=== PATIENT | male | born 1955 | race Hispanic/Latino ===

== ENCOUNTER 2017-10-02 18:01 | Emergency (ER) | payer MEDICAID ==
[2017-10-02 18:19] VITALS: BP 140/63
[2017-10-02 20:34] LABS: Bilirubin,Urine NEG (Negative); Blood,Urine NEG (Negative); Color,Urine Yellow (Yellow); Protein,Urine <15 mg/dL mg/dL (Negative); RBC,Urine < 1.0 /HPF (0.0-6.0); Urobilinogen,Urine < 2.0 mg/dL (<2.0); WBC,Urine < 1.0 /HPF (0.0-6.0)
[2017-10-02] MEDS ORDERED: NORCO 5/325 PO ONE (23:37)
--- NOTE | 2017-10-03 00:50 | Cat Scan Report ---
FINAL REPORT EXAM: CT ABDOMEN PELVIS WO CON HISTORY: flank+lower back pain please include l-spine COMPARISON: None available. TECHNIQUE: Contiguous axial images were obtained. Additional sagittal and coronal reformatted images were obtained. FINDINGS: Mild linear atelectasis or scarring at the visualized lung bases. 4 millimeter nodule within the lingula (series 4, image 2). There is ill-defined hypodense lesion centrally within the superior right hepatic lobe measuring approximately 2.5 x 2.5 centimeters in axial dimension. There is a 2nd lesion at the medial margin right hepatic lobe measuring 2.1 x 1.9 centimeters. Spleen is unremarkable. Multiple calcifications the pancreas with pancreatic ductal dilatation compatible sequelae of chronic pancreatitis. No peripancreatic stranding or fluid to suggest active pancreatitis by CT. Mild nodular thickening of adrenal glands. Tiny hiatal hernia. No calcified gallstones. There multiple vascular calcifications at the medial margins of the kidneys bilaterally. No obstructive renal calculi. There is a focal defect of the inferior margin right kidney which may relate to sequelae of prior surgery, inflammation, or trauma. Small benign bilateral renal cysts. No hydronephrosis. Aorta and IVC are normal in caliber. Moderate severe calcified plaque along the aorta. Mild wall thickening at the anterior lateral margins of the urinary bladder. Wall thickness measures up to 6 millimeters. No distal ureteral urinary bladder calculi. Prostate gland is grossly unremarkable. No free fluid or lymphadenopathy in the pelvic cavity. Moderate diverticulosis of left colon. No diverticulitis. Moderate large amount of stool within the colon. No focal inflammatory changes the bowel. The appendix is normal in caliber. No bowel obstruction. No free air pneumatosis. Bilateral pars defects at the L5 level with grade 1 anterolisthesis of L5 on S1 by 8 millimeters. Severe bilateral foraminal narrowing at that level. Broad-based disc bulges at the L3-L4 and L4-L5 levels cause mild to moderate canal stenosis and foraminal narrowing. There is an oblique fracture through the anterior superior margin of the L1 vertebral body. This is of uncertain age. Mild depression of the superior endplate by 3 millimeters. No bony retropulsion. IMPRESSION: Oblique nondisplaced fracture of the anterior superior margin of the L1 vertebral body mild depression of the superior endplate. This fractures of uncertain age may be acute or chronic. Remaining lumbar vertebral body heights are preserved. Grade 1 anterolisthesis of L5 on S1 due to chronic bilateral pars defects with severe bilateral foramina ring at that level. No obstructive renal calculi or hydronephrosis. There is several calcifications the renal sinus fat bilaterally which could be vascular origin. There are least 2 indeterminate hypodense lesions within the liver. [address] suggested for further evaluation. Moderate large amount of stool within the colon. No focal inflammatory changes the bowel or the appendix. Diverticulosis of left colon. No diverticulitis. Changes of chronic pancreatitis. No peripancreatic stranding or fluid to suggest active inflammation the pancreas by CT. Correlation with amylase lipase suggested. Mild wall thickening of the anterior lateral margins of the urinary bladder. Correlation with urinalysis suggested to ensure no active inflammation.
[2017-10-03] MEDS ORDERED: MOTRIN PO ONE (01:01)
[2017-10-03] MEDS ORDERED: NORCO 5/325 PO ONE (01:02)
--- NOTE | 2017-10-03 01:17 | Emergency Department Report ---
ED Back Pain/Injury HPI - General Chief Complaint: Back Pain/Injury Stated Complaint: BACK PAIN Time Seen by Provider: 10/03/17 00:06 Source: patient Limitations: No Limitations - History of Present Illness Initial Comments: 61-year-old male past medical history arthritis, chronic pancreatitis, back pain , anxiety, rib pain, C. difficile, arthritis, diabetes presents with complaint of body aches and lower back pain for approximately 3-4 days. Patient denies fevers chills nausea or vomiting. States he feels slightly constipated but is still passing gas. Primarily complaining of pain in his lower back region. Denies fevers chills chest pain palpitations dysuria or hematuria or increased urinary frequency. Patient is ambulatory awake alert and oriented 3. Denies any saddle paresthesias or bladder or bowel incontinence. Denies fevers or chills. Denies any recent falls or recent trauma. Denies doing any particular action where he might have hurt his lower back. States this occurred spontaneously. MD Complaint: back pain Onset/Timin -: days(s) Place: home Severity: moderate Severity scale (0 -10): 7 Quality: sharp, dull, aching Consistency: intermittent Improves With: immobilization, supine Worsens With: immobilization Context: while lifting, turning/twisting, bending - Related Data Previous Rx's Medication Instructions Recorded Last Taken Type Docusate Sodium [Colace] 100 mg PO TID PRN #30 capsule 10/03/17 Unknown Rx HYDROcodone/APAP 5-325 [Western 1 each PO Q6HR PRN #18 tablet 10/03/17 Unknown Rx 5/325] Sennosides [Senna] 8.6 mg PO QHS PRN #10 tablet 10/03/17 Unknown Rx Allergies Allergy/AdvReac Type Severity Reaction Status Date / Time No Known Allergies Allergy Unverified 10/02/17 18:14 ED Review of Systems ROS: Stated complaint: BACK PAIN Other details as noted in HPI Constitutional: denies: chills, fever Eyes: denies: eye pain, eye discharge, vision change ENT: as per HPI (chronic cervical lymphadenopathy). denies: ear pain, throat pain Respiratory: denies: cough, shortness of breath, wheezing Cardiovascular: denies: chest pain, palpitations Endocrine: no symptoms reported Gastrointestinal: constipation (approximately 1-2 weeks of intermittent constipation. Patient still passing gas). denies: abdominal pain, nausea, diarrhea Genitourinary: denies: urgency, dysuria Musculoskeletal: back pain (3-4 days of persistent lower back pain). denies: joint swelling, arthralgia Skin: denies: rash, lesions Neurological: denies: headache, weakness, paresthesias Psychiatric: denies: anxiety, depression Hematological/Lymphatic: denies: easy bleeding, easy bruising ED Past Medical Hx - Past Medical History Previous Medical History?: Yes Hx Diabetes: Yes (borderline) Hx Arthritis: Yes Additional medical history: Back pain, Anxiety, Right rib pain, C- diff infection, [place], Pancreatitis - Surgical History Past Surgical History?: No - Social History Smoking Status: Current Every Day Smoker Substance Use Type: Prescribed - Medications Home Medications: Home Medications Medication Instructions Recorded Confirmed Last Taken Type Docusate Sodium [Colace] 100 mg PO TID PRN #30 capsule 10/03/17 Unknown Rx HYDROcodone/APAP 5-325 [Western 1 each PO Q6HR PRN #18 tablet 10/03/17 Unknown Rx 5/325] Sennosides [Senna] 8.6 mg PO QHS PRN #10 tablet 10/03/17 Unknown Rx ED Physical Exam - General Limitations: No Limitations General appearance: alert, in no apparent distress - Head Head exam: Present: atraumatic, normocephalic - Eye Eye exam: Present: normal appearance - ENT ENT exam: Present: mucous membranes moist - Neck Neck exam: Present: normal inspection, lymphadenopathy (patient states he has had lymphadenopathy for several months) - Respiratory Respiratory exam: Present: normal lung sounds bilaterally. Absent: respiratory distress - Cardiovascular Cardiovascular Exam: Present: regular rate, normal rhythm. Absent: systolic murmur, diastolic murmur, rubs, gallop - GI/Abdominal GI/Abdominal exam: Present: soft, normal bowel sounds - Rectal Rectal exam: Present: deferred - Extremities Exam Extremities exam: Present: normal inspection - Back Exam Back exam: Present: normal inspection, full ROM, paraspinal tenderness ( paraspinal L spine tenderness. No midline cervical thoracic or lumbar spinal tenderness. No erythema or rash and back will) - Neurological Exam Neurological exam: Present: alert, oriented X3, CN II-XII intact, normal gait - Expanded Neurological Exam Expanded Patient oriented to: Present: person, place, time Cranial nerves: EOM's Intact: Normal, Facial Sensation: Normal Sensory exam: Upper Extremity Light Touch: Normal, Lower Extremity Light Touch: Normal Motor strength exam: RUE: 5, LUE: 5, RLE: 5, LLE: 5 DTR: knee (R): 3+, knee (L): 3+ Best Eye Response ([place]): (4) open spontaneously Best Motor Response ([place]): (6) obeys commands Best Verbal Response ([place]osa): (5) oriented [place] Total: 15 - Psychiatric Psychiatric exam: Present: normal affect, normal mood - Skin Skin exam: Present: warm, dry, intact, normal color. Absent: rash ED Course Vital Signs 10/02/17 18:14 Temperature 98.5 F Pulse Rate 63 Respiratory 20 Rate Blood Pressure 140/63 O2 Sat by Pulse 95 Oximetry ED Medical Decision Making - Lab Data Result diagrams: 10/03/17 00:43 10/03/17 00:43 - Medical Decision Making A/P: Vertebral fracture, chronic lymphadenopathy, hyponatremia 1-I discussed case with Dr. Betancourt and reviewed labs as well as CT result. As per my discussion with attending I will treat patient for pain and refer him to a spine surgeon/neurosurgery Dr. Marshall. Patient has no clinical signs of cauda equina. Strength 5 out of 5 bilateral lower extremities. No saddle paresthesias no bladder or bowel incontinence. I advised him to return to the ED if he notices any of the symptoms. Patient is ambulating without assistance and has no signs of paralysis. In bear weight against gravity. 2-sodium level 129 I discussed this with attending. Repleted with normal saline IV. Labs otherwise unremarkable. Creatinine kinase is not elevated 3- I informed patient of result of CT 4- senna and Colace for constipation. Patient has no abdominal pain still passing gas without difficulty. No clinical suspicion for obstruction 5- follow-up with him on for chronic cervical lymphadenopathy. Patient has no clinical signs of infection at this time Critical care attestation.: If time is entered above; I have spent that time in minutes in the direct care of this critically ill patient, excluding procedure time. ED Disposition Clinical Impression: Body aches, Cervical lymphadenopathy, Hyponatremia Vertebral fracture Qualifiers: Encounter type: initial encounter Fracture of vertebra location: lumbar Lumbar vertebra fracture level: L1 Fracture type: closed Fracture morphology: other fracture Qualified Code(s): S32.018A - Other fracture of first lumbar vertebra, initial encounter for closed fracture Disposition: TO HOME OR SELFCARE Is pt being admited?: No Does the pt Need Aspirin: No Condition: Stable Instructions: Vertebral Compression Fracture (ED), Hyponatremia (ED), Lymphadenopathy (ED), Back Pain (ED) Prescriptions: Sennosides [Senna] 8.6 mg PO QHS PRN #10 tablet PRN Reason: Constipation Docusate Sodium [Colace] 100 mg PO TID PRN #30 capsule PRN Reason: Constipation HYDROcodone/APAP 5-325 [Western 5/325] 1 each PO Q6HR PRN #18 tablet PRN Reason: Pain Referrals: MOHAN RAYO [Other] - 3-5 Days AUTUMN GARCIA MD [Staff Physician] - 3-5 Days MRAITZA MARSHALL MD [Staff Physician] - 3-5 Days LINDA DELGADILLO DO [Staff Physician] - 3-5 Days Time of Disposition: 04:38
[2017-10-03 01:56] LABS: Basophils % (Auto) 0.4 % (0.0-1.8); Eosinophils # (Auto) 0.1 K/mm3 (0.0-0.4); Eosinophils % (Auto) 1.4 % (0.0-4.3); Hematocrit 35.6 % (35.5-45.6); Hemoglobin 12.4 gm/dl (11.8-15.2); Lymphocytes # (Auto) 1.8 K/mm3 (1.2-5.4); Lymphocytes % (Auto) 25.6 % (13.4-35.0); Mean Corpuscular HGB Conc 35 % (32-34); Mean Corpuscular Hemoglobin 32 pg (28-32); Mean Corpuscular Volume 92 fl (84-94); Monocytes # (Auto) 0.7 K/mm3 (0.0-0.8); Monocytes % (Auto) 9.6 % (0.0-7.3); Platelet Count 208 K/mm3 (140-440); Red Blood Count 3.88 M/mm3 (3.65-5.03); Red Cell Distribution Width 13.5 % (13.2-15.2)
[2017-10-03 02:11] LABS: Alanine Aminotransferase 6 units/L (7-56); Albumin 3.9 g/dL (3.9-5); BUN/Creatinine Ratio 10; Blood Urea Nitrogen 5 mg/dL (9-20); Hemolysis Index 2; Lipase 48 units/L (13-60)
[2017-10-03] MEDS ORDERED: NACL 0.9% 1000 ML 1,000 ML IV ONE (02:21)
[2017-10-03 02:29] LABS: Bilirubin,Direct < 0.2 mg/dL (0-0.2)
[2017-10-03] MEDS ORDERED: DUONEB *Not for PRN Use IH ONE (06:49)
[2017-10-03] MEDS ORDERED: DELTASONE PO ONE (06:49)
[2017-10-03] MEDS ORDERED: XANAX PO ONE (07:11)
[2017-10-03 07:53] LABS: BUN/Creatinine Ratio 12; Blood Urea Nitrogen 6 mg/dL (9-20); Calcium 8.6 mg/dL (8.4-10.2); Hemolysis Index 3
== END 2017-10-03 07:22 | disposition home or self-care (01) ==
LOC: ED 18:01
DX: S32.018A Other fracture of first lumbar vertebra, initial encounter for closed fracture (principal); R59.1 Generalized enlarged lymph nodes; E87.1 Hypo-osmolality and hyponatremia; E11.9 Type 2 diabetes mellitus without complications; M19.90 Unspecified osteoarthritis, unspecified site; F17.200 Nicotine dependence, unspecified, uncomplicated
CPT/HCPCS: 36415; 74176; 80048; 80074; 81001; 82150; 82550; 83690; 85025; 96360; 99284; J7030

== ENCOUNTER 2017-11-18 15:23 | Emergency (ER) | payer MEDICAID ==
[2017-11-18] MEDS ORDERED: ASPIRIN PO ONE (16:08)
[2017-11-18 16:34] LABS: Basophils % (Auto) 0.3 % (0.0-1.8); Eosinophils % (Auto) 0.3 % (0.0-4.3); Hematocrit 27.9 % (35.5-45.6); Lymphocytes # (Auto) 1.8 K/mm3 (1.2-5.4); Lymphocytes % (Auto) 12.3 % (13.4-35.0); Mean Corpuscular HGB Conc 36 % (32-34); Mean Corpuscular Hemoglobin 33 pg (28-32); Mean Corpuscular Volume 92 fl (84-94); Monocytes # (Auto) 0.7 K/mm3 (0.0-0.8); Monocytes % (Auto) 4.7 % (0.0-7.3); Platelet Count 368 K/mm3 (140-440); Red Blood Count 3.04 M/mm3 (3.65-5.03); Red Cell Distribution Width 14.5 % (13.2-15.2)
[2017-11-18 16:42] LABS: BUN/Creatinine Ratio 11; Blood Urea Nitrogen 8 mg/dL (9-20); Calcium 9.4 mg/dL (8.4-10.2); Hemolysis Index 1
[2017-11-19] MEDS ORDERED: NACL 0.9% 1000 ML 1,000 ML IV ONE ×2 (02:30→02:33)
[2017-11-19] MEDS ORDERED: XANAX PO ONE (02:30)
[2017-11-19 02:54] LABS: Bilirubin,Urine NEG (Negative); Blood,Urine NEG (Negative); Color,Urine Yellow (Yellow); Hyaline Casts,Urine 1 /LPF; Mucus,Urine FEW /HPF; Protein,Urine <15 mg/dL mg/dL (Negative); RBC,Urine < 1.0 /HPF (0.0-6.0); Urobilinogen,Urine < 2.0 mg/dL (<2.0)
[2017-11-19 03:05] LABS: Amphetamine Screen,Urine PRESUMPTIVE NEGATIVE; Benzodiazepines Screen,Urine PRESUMPTIVE NEGATIVE; Cannabinoid Screen,Urine PRESUMPTIVE NEGATIVE; Cocaine Screen,Urine PRESUMPTIVE NEGATIVE; Methadone Screen,Urine PRESUMPTIVE NEGATIVE; Opiate Screen,Urine PRESUMPTIVE NEGATIVE
--- NOTE | 2017-11-19 04:16 | XRay Report ---
FINAL REPORT PROCEDURE: XR CHEST ROUTINE 2V TECHNIQUE: PA and lateral chest radiographs were obtained. CPT 50134 HISTORY: anxiety, sob COMPARISON: No prior studies are available for comparison. FINDINGS: Heart: Normal. Mediastinum/Vessels: Normal. Lungs/Pleural space: Lungs are expanded and clear. There are no infiltrates, effusions or pneumothoraces.. Bony thorax: There are old bilateral rib fractures. There is no acute bony abnormality.. Other: IMPRESSION: The heart size is normal.. Lungs are expanded and clear. There are no infiltrates, effusions or pneumothoraces.. There are old bilateral rib fractures. There is no acute bony abnormality..
[2017-11-19] MEDS ORDERED: ZOFRAN IV ONE (05:05)
--- NOTE | 2017-11-19 05:10 | Emergency Department Report ---
- General Chief complaint: Chest Pain Stated complaint: DIZZY AND NAUSEA Time Seen by Provider: 11/19/17 01:30 Source: patient, old records reviewed Mode of arrival: Ambulatory Limitations: No Limitations - History of Present Illness Initial comments: 62-year-old male with a "borderline diabetes", arthritis, and anxiety presents to the hospital with complaint of lightheadedness. Patient states he feels dizzy like he is going to pass out. He has body aches rated 5/10 in intensity, nausea, and feeling extremely anxious 1 week. Mild shortness of breath also reported. No chest pain, vomiting, fever, or diarrhea P Patient has been on benzos in the past but states most doctors are not willing to prescribe this medication for him right now. He is not currently under care of a psychiatrist but has been in the past. Patient is on hydroxyzine without improvement in anxiety symptoms. Severity scale (0 -10): 10 - Related Data Previous Rx's Medication Instructions Recorded Last Taken Type ALPRAZolam [Xanax TAB] 0.5 mg PO TID PRN #4 tab 10/03/17 Unknown Rx Docusate Sodium [Colace] 100 mg PO TID PRN #30 capsule 10/03/17 Unknown Rx HYDROcodone/APAP 5-325 [[place] 1 each PO Q6HR PRN #18 tablet 10/03/17 Unknown Rx 5/325] Sennosides [Senna] 8.6 mg PO QHS PRN #10 tablet 10/03/17 Unknown Rx Meclizine [Antivert] 25 mg PO TID PRN #30 tablet 11/19/17 Unknown Rx Allergies Allergy/AdvReac Type Severity Reaction Status Date / Time No Known Allergies Allergy Verified 11/19/17 01:39 ED Review of Systems ROS: Stated complaint: DIZZY AND NAUSEA Other details as noted in HPI Comment: All other systems reviewed and negative ED Past Medical Hx - Past Medical History Previous Medical History?: Yes Hx Diabetes: Yes (borderline) Hx Arthritis: Yes Additional medical history: Back pain, Anxiety, Right rib pain, C- diff infection, Echoli, Pancreatitis - Surgical History Past Surgical History?: No - Social History Smoking Status: Current Every Day Smoker Substance Use Type: Prescribed - Medications Home Medications: Home Medications Medication Instructions Recorded Confirmed Last Taken Type ALPRAZolam [Xanax TAB] 0.5 mg PO TID PRN #4 tab 10/03/17 Unknown Rx Docusate Sodium [Colace] 100 mg PO TID PRN #30 capsule 10/03/17 Unknown Rx HYDROcodone/APAP 5-325 [[place] 1 each PO Q6HR PRN #18 tablet 10/03/17 Unknown Rx 5/325] Sennosides [Senna] 8.6 mg PO QHS PRN #10 tablet 10/03/17 Unknown Rx Meclizine [Antivert] 25 mg PO TID PRN #30 tablet 11/19/17 Unknown Rx ED Physical Exam - General Limitations: No Limitations - Other Other exam information: General: No limitations, patient is alert in no acute distress Head exam: Atraumatic, normocephalic Eyes exam: Normal appearance, pupils equal reactive to light, extraocular movements intact ENT: Moist mucous membrane, normal oropharynx Neck exam: Normal inspection, full range of motion, no meningismus nontender Respiratory exam: Clear to auscultation bilateral, no wheezes, rales, crackles Cardiovascular: Normal rate and rhythm, normal heart sounds Abdomen: Soft, nondistended, and nontender, with normal bowel sounds, no rebound, or guarding Extremity: Full range of motion normal inspection no deformity Back: Normal Inspection, full range of motion, no tenderness Neurologic: Alert, oriented x3, cranial nerves intact, no motor or sensory deficit Psychiatric: normal affect, normal mood Skin: Warm, dry, intact - Assessment Assessment Interval: Baseline - Level of Consciousness 1a. Level of Consciousness: alert - LOC Questions 1b. LOC Questions: answers correctly - LOC Command 1c. LOC Commands: performs tasks correctly - Best Gaze 2. Best Gaze: normal - Visual 3. Visual: no visual loss - Facial Palsy 4. Facial Palsy: normal symmetrical movement - Motor Arm 5b. Motor Arm Right: no drift 5a. Motor Arm Left: no drift - Motor Leg 6a. Motor Leg Left: no drift 6b. Motor Leg Right: no drift - Limb Ataxia 7. Limb Ataxia: absent - Sensory 8. Sensory: normal - Best Language 9. Best Language: no aphasia - Dysarthria 10. Dysarthria: normal - Extinction and Inattention 11. Extinction/Inattention: no abnormality - Scoring Total Score: 0 Stroke Severity: No Stroke Symptoms ED Course Vital Signs 11/18/17 11/18/17 11/19/17 15:59 21:22 01:31 Temperature 98.1 F 98.2 F 98.3 F Pulse Rate 109 H 107 H 96 H Pulse Rate [ Lying] Respiratory 16 18 16 Rate Blood Pressure 134/73 122/79 Blood Pressure [Lying] Blood Pressure 134/73 131/80 [Right] O2 Sat by Pulse 98 99 95 Oximetry 11/19/17 11/19/17 11/19/17 03:00 03:30 03:45 Temperature Pulse Rate 93 H 91 H Pulse Rate [ 94 H Lying] Respiratory 11 L 14 Rate Blood Pressure 134/81 144/82 Blood Pressure 109/73 [Lying] Blood Pressure [Right] O2 Sat by Pulse 98 98 Oximetry 11/19/17 11/19/17 11/19/17 03:49 04:00 04:15 Temperature Pulse Rate 92 H 91 H Pulse Rate [ Lying] Respiratory 16 15 18 Rate Blood Pressure 127/83 136/81 Blood Pressure [Lying] Blood Pressure [Right] O2 Sat by Pulse 98 97 98 Oximetry 11/19/17 11/19/17 11/19/17 04:30 04:45 05:00 Temperature Pulse Rate 93 H 92 H 91 H Pulse Rate [ Lying] Respiratory 16 17 13 Rate Blood Pressure 136/85 143/86 144/89 Blood Pressure [Lying] Blood Pressure [Right] O2 Sat by Pulse 96 96 Oximetry - Reevaluation(s) Reevaluation #1: 11/19/17 06:17 Patient received IV fluids with improvement in heart rate. Patient requests medication for a vertical symptom although he described it more as a lightheadedness. He went given meclizine in the ED and a prescription. He was instructed not to take Vistaril and meclizine together since they are similar classes ED Medical Decision Making - Lab Data Result diagrams: 11/18/17 16:17 11/18/17 16:17 Lab Results 11/18/17 11/18/17 11/18/17 Range/Units 15:52 16:17 16:17 WBC 14.5 H (4.5-11.0) K/mm3 RBC 3.04 L (3.65-5.03) M/mm3 Hgb 10.0 L (11.8-15.2) gm/dl Hct 27.9 L (35.5-45.6) % MCV 92 (84-94) fl MCH 33 H (28-32) pg MCHC 36 H (32-34) % RDW 14.5 (13.2-15.2) % Plt Count 368 (140-440) K/mm3 Lymph % (Auto) 12.3 L (13.4-35.0) % Rains % (Auto) 4.7 (0.0-7.3) % Eos % (Auto) 0.3 (0.0-4.3) % Baso % (Auto) 0.3 (0.0-1.8) % Lymph # 1.8 (1.2-5.4) K/mm3 Rains # 0.7 (0.0-0.8) K/mm3 Eos # 0.0 (0.0-0.4) K/mm3 Baso # 0.0 (0.0-0.1) K/mm3 Seg Neutrophils % 82.4 H (40.0-70.0) % Seg Neutrophils # 12.0 H (1.8-7.7) K/mm3 POC ABG pH (7.35-7.45) POC ABG pCO2 (35-45) POC ABG pO2 (80-105) POC ABG HCO3 POC ABG Total CO2 POC ABG O2 Sat POC ABG Base Excess FiO2 % Sodium 131 L (137-145) mmol/L Potassium 4.2 (3.6-5.0) mmol/L Chloride 88.6 L (98-107) mmol/L Carbon Dioxide 17 L (22-30) mmol/L Anion Gap 30 mmol/L BUN 8 L (9-20) mg/dL Creatinine 0.7 L (0.8-1.5) mg/dL Estimated GFR > 60 ml/min BUN/Creatinine Ratio 11 % Glucose 68 L (75-100) mg/dL POC Glucose 69 L (70-105) Calcium 9.4 (8.4-10.2) mg/dL Troponin T < 0.010 (0.00-0.029) ng/mL Urine Color (Yellow) Urine Turbidity (Clear) Urine pH (5.0-7.0) Ur Specific [place] (1.003-1.030) Urine Protein (Negative) mg/dL Urine Glucose (UA) (Negative) mg/dL Urine Ketones (Negative) mg/dL Urine Blood (Negative) Urine Nitrite (Negative) Urine Bilirubin (Negative) Urine Urobilinogen (<2.0) mg/dL Ur Leukocyte Esterase (Negative) Urine WBC (Auto) (0.0-6.0) /HPF Urine RBC (Auto) (0.0-6.0) /HPF Hyaline Casts /LPF Urine Mucus /HPF Urine Opiates Screen Urine Methadone Screen Ur Barbiturates Screen Ur Phencyclidine Scrn Ur Amphetamines Screen U Benzodiazepines Scrn Urine Cocaine Screen U Marijuana (THC) Screen Drugs of Abuse Note 11/18/17 11/18/17 11/19/17 Range/Units 18:38 22:05 02:44 WBC (4.5-11.0) K/mm3 RBC (3.65-5.03) M/mm3 Hgb (11.8-15.2) gm/dl Hct (35.5-45.6) % MCV (84-94) fl MCH (28-32) pg MCHC (32-34) % RDW (13.2-15.2) % Plt Count (140-440) K/mm3 Lymph % (Auto) (13.4-35.0) % Rains % (Auto) (0.0-7.3) % Eos % (Auto) (0.0-4.3) % Baso % (Auto) (0.0-1.8) % Lymph # (1.2-5.4) K/mm3 Rains # (0.0-0.8) K/mm3 Eos # (0.0-0.4) K/mm3 Baso # (0.0-0.1) K/mm3 Seg Neutrophils % (40.0-70.0) % Seg Neutrophils # (1.8-7.7) K/mm3 POC ABG pH (7.35-7.45) POC ABG pCO2 (35-45) POC ABG pO2 (80-105) POC ABG HCO3 POC ABG Total CO2 POC ABG O2 Sat POC ABG Base Excess FiO2 % Sodium (137-145) mmol/L Potassium (3.6-5.0) mmol/L Chloride (98-107) mmol/L Carbon Dioxide (22-30) mmol/L Anion Gap mmol/L BUN (9-20) mg/dL Creatinine (0.8-1.5) mg/dL Estimated GFR ml/min BUN/Creatinine Ratio % Glucose (75-100) mg/dL POC Glucose 88 (70-105) Calcium (8.4-10.2) mg/dL Troponin T < 0.010 < 0.010 (0.00-0.029) ng/mL Urine Color (Yellow) Urine Turbidity (Clear) Urine pH (5.0-7.0) Ur Specific [place] (1.003-1.030) Urine Protein (Negative) mg/dL Urine Glucose (UA) (Negative) mg/dL Urine Ketones (Negative) mg/dL Urine Blood (Negative) Urine Nitrite (Negative) Urine Bilirubin (Negative) Urine Urobilinogen (<2.0) mg/dL Ur Leukocyte Esterase (Negative) Urine WBC (Auto) (0.0-6.0) /HPF Urine RBC (Auto) (0.0-6.0) /HPF Hyaline Casts /LPF Urine Mucus /HPF Urine Opiates Screen Urine Methadone Screen Ur Barbiturates Screen Ur Phencyclidine Scrn Ur Amphetamines Screen U Benzodiazepines Scrn Urine Cocaine Screen U Marijuana (THC) Screen Drugs of Abuse Note 11/19/17 11/19/17 11/19/17 Range/Units 03:18 Unknown Unknown WBC (4.5-11.0) K/mm3 RBC (3.65-5.03) M/mm3 Hgb (11.8-15.2) gm/dl Hct (35.5-45.6) % MCV (84-94) fl MCH (28-32) pg MCHC (32-34) % RDW (13.2-15.2) % Plt Count (140-440) K/mm3 Lymph % (Auto) (13.4-35.0) % Rains % (Auto) (0.0-7.3) % Eos % (Auto) (0.0-4.3) % Baso % (Auto) (0.0-1.8) % Lymph # (1.2-5.4) K/mm3 Rains # (0.0-0.8) K/mm3 Eos # (0.0-0.4) K/mm3 Baso # (0.0-0.1) K/mm3 Seg Neutrophils % (40.0-70.0) % Seg Neutrophils # (1.8-7.7) K/mm3 POC ABG pH 7.463 H (7.35-7.45) POC ABG pCO2 31.4 L (35-45) POC ABG pO2 88 (80-105) POC ABG HCO3 22.5 POC ABG Total CO2 23 POC ABG O2 Sat 97 POC ABG Base Excess -1 FiO2 21 % Sodium (137-145) mmol/L Potassium (3.6-5.0) mmol/L Chloride (98-107) mmol/L Carbon Dioxide (22-30) mmol/L Anion Gap mmol/L BUN (9-20) mg/dL Creatinine (0.8-1.5) mg/dL Estimated GFR ml/min BUN/Creatinine Ratio % Glucose (75-100) mg/dL POC Glucose (70-105) Calcium (8.4-10.2) mg/dL Troponin T (0.00-0.029) ng/mL Urine Color Yellow (Yellow) Urine Turbidity Clear (Clear) Urine pH 5.0 (5.0-7.0) Ur Specific [place] 1.013 (1.003-1.030) Urine Protein <15 mg/dl (Negative) mg/dL Urine Glucose (UA) Neg (Negative) mg/dL Urine Ketones Tr (Negative) mg/dL Urine Blood Neg (Negative) Urine Nitrite Neg (Negative) Urine Bilirubin Neg (Negative) Urine Urobilinogen < 2.0 (<2.0) mg/dL Ur Leukocyte Esterase Neg (Negative) Urine WBC (Auto) 3.0 (0.0-6.0) /HPF Urine RBC (Auto) < 1.0 (0.0-6.0) /HPF Hyaline Casts 1 /LPF Urine Mucus Few /HPF Urine Opiates Screen Presumptive negative Urine Methadone Screen Presumptive negative Ur Barbiturates Screen Presumptive negative Ur Phencyclidine Scrn Presumptive negative Ur Amphetamines Screen Presumptive negative U Benzodiazepines Scrn Presumptive negative Urine Cocaine Screen Presumptive negative U Marijuana (THC) Screen Presumptive negative Drugs of Abuse Note Disclamer - EKG Data -: EKG Interpreted by Me (ant infract old) EKG shows normal: sinus rhythm, axis (qrs 45), QRS complexes (qrsd 80), ST-T waves (no stemi/t inv) Rate: normal (96) - EKG Data When compared to previous EKG there are: previous EKG unavailable 11/19/17 repeat ekg in ed does not show any acute changes - Radiology Data Radiology results: report reviewed PROCEDURE: XR CHEST ROUTINE 2V TECHNIQUE: PA and lateral chest radiographs were obtained. CPT 66231 HISTORY: anxiety, sob COMPARISON: No prior studies are available for comparison. FINDINGS: Heart: Normal. Mediastinum/Vessels: Normal. Lungs/Pleural space: Lungs are expanded and clear. There are no infiltrates, effusions or pneumothoraces.. Bony thorax: There are old bilateral rib fractures. There is no acute bony abnormality.. Other: IMPRESSION: The heart size is normal.. Lungs are expanded and clear. There are no infiltrates, effusions or pneumothoraces.. There are old bilateral rib fractures. There is no acute bony abnormality.. - Medical Decision Making Patient had an increase in his heart rate with standing but blood pressure did not drop suggest significant dehydration orthostatics. Patient noted to be hyponatremic and has been hyponatremic in the past. Normal saline provided. Patient has chronic anxiety and has been on benzodiazepines in the past and currently taking hydroxyzine without improvement. He needs to follow-up with a psychiatrist for definitive management of his chronic anxiety symptoms. ABG was performed due to low bicarbonate on BMP. ABG reveals very mild respiratory alkalosis could be due to hyperventilation from anxiety symptoms. - Differential Diagnosis electrolyte abnormality, dehydration, infection, arrhythmia, anxiety Critical Care Time: No Critical care attestation.: If time is entered above; I have spent that time in minutes in the direct care of this critically ill patient, excluding procedure time. ED Disposition Clinical Impression: Anxiety, Hyponatremia, Light-headed feeling Disposition: DC-01 TO HOME OR SELFCARE Is pt being admited?: No Does the pt Need Aspirin: No Condition: Stable Instructions: Hyponatremia (ED), Lightheadedness (ED), Anxiety (ED) Additional Instructions: It is very important that you see a psychiatrist and a primary care doctor for further treatment. Do not take the meclizine and hydroxyzine together because they are a similar class of medication Prescriptions: Meclizine [Antivert] 25 mg PO TID PRN #30 tablet PRN Reason: Vertigo Referrals: PRIMARY CARE, [Primary Care Provider] - 3-5 Days [facility] [Provider Group] - 3-5 Days ([facility] clinic[facility] - [facility]-5 Days (Mental health clinic) JOLANTA ADAN MD [Staff Physician] - 3-5 Days (Primary care doctor) Time of Disposition: 06:19 (d/c after ivf complete)
[2017-11-19] MEDS ORDERED: ANTIVERT PO ONE (06:18)
[2017-11-19 09:56] VITALS: BP 117/80
== END 2017-11-19 10:57 | disposition home or self-care (01) ==
LOC: ED 15:23
DX: F41.9 Anxiety disorder, unspecified (principal); E87.1 Hypo-osmolality and hyponatremia; R42 Dizziness and giddiness; E11.9 Type 2 diabetes mellitus without complications; M19.90 Unspecified osteoarthritis, unspecified site; F17.200 Nicotine dependence, unspecified, uncomplicated; Z79.899 Other long term (current) drug therapy
CPT/HCPCS: 36415; 71046; 80048; 80307; 81001; 82803; 82962; 84484; 85025; 93005; 93010; 96361; 96374; 99285; J2405; J7030